=== PATIENT | female | born 1990 | race Two or more races ===

== ENCOUNTER 2018-06-24 11:00 | Observation (INO) | payer MEDICAID ==
[2018-06-24] MEDS ORDERED: LR 1,000 ML IV SCH (12:00)
[2018-06-24] MEDS ORDERED: ONDANSETRON 4 MG/2 ML VIAL IVP PRN (12:01)
--- NOTE | 2018-06-24 12:01 | PDGENHP ---
History and Physical History and Physical: Care: [facility] HPI: Patient is a 28yo with IUP @ 22-3 weeks that presents to L&D with complaints of cramping and back pain since yesterday evening. She was seen at [facility] last night and given indocin- with no relief. She states she is still having pain that starts in her back and radiates to the front. She is rating pain 5-6/10. She states warm baths help with pain. She denies any LOF, VB. She reports +FM. EDC: 10/25/18 which is based on LMP: 01/18/18 which is known and consistent with Ultrasound at 9 weeks. Her is complicated by: infertility ([id number]) Review of Systems: Constitutional: Denies any fever, chills, or fatigue HEENT: denies any visual changes, difficulty swallowing, hearing loss Cardiovascular: Denies any chest pain, palpitations, leg swelling Respiratory: denies any cough, wheezing, or shortness of breathe GI: Denies any nausea, vomiting, diarrhea, constipation, +cramps/back pain : denies any dysuria, urgency, frequency, vaginal bleeding Musculoskeletal: reports +back pain Skin: denies any rashes Neuro: denies any headache, seizures, lightheadedness, dizziness, or loss of consciousness Psychiatric: denies any depression, anxiety, or SI/HI thoughts HISTORY: Previous OB history: G1 Past medical history: infertility, BMI 34 Past surgical history: cholecystectomy, appendectomy, tonsillectomy Social: Denies any alcohol,drug use. reports tobacco use quit in first trimester Family history: Not relevant Medications: PNV Allergies: naproxen, percocet, wellbutrin LABS: Rh: A+ ABS: Neg Rubella: Immune HbsAg: NR HIV: NR VDRL: NR 1hr: n/a GC: Neg Chlamydia: Neg BMI: (prepreg)34 PHYSICAL EXAM: Constitutional: WN, A&Ox3 HEENT: normocephalic atraumatic, supple Skin: Warm, dry, intact Heart: RRR, no murmur Chest: CTA-B Abdomen: Soft, nontender, gravid SVE: ft/th/high x2 Extremities: no edema, negative homans sign Neuro: grossly normal Psych: normal affect assessment: FHT 145 Contractions: toco none- but difficult to roller picker due to maternal habitus, pt reports feeling pain/cramps q 4-6min Assessment: * [id number] with IUP@ 22-3wks * no evidence of labor * Likely GI virus * CL 4.1 cm * +FHT's * dehyration- resolved with IV fluids * UA negative, cx pending * +Bacterial vaginosis * anemia Plan: * may d/c home at this time * cont adequate PO hydration * Rx PO zofran/iron * monitor closely for S&S of PTL * cont tx for +BV * will tx if indicated - urine * keep next sched appt with FCM in approx 1 week this was reviewed with Luz Elena Lucero MD- aware/agrees with plan of care. Today's visit was approximately 60 min, of which >50% of visit 45 min, was spent face to face with pt on direct counseling/coordination of care.
[2018-06-24] MEDS ORDERED: CLINDAMYCIN 150 MG CAP PO SCH (13:15)
[2018-06-24] MEDS ORDERED: ACETAMINOPHEN 325 MG TAB PO PRN (13:28)
== END 2018-06-24 16:10 | disposition home or self-care (01) ==
LOC: FLD 11:00
PROVIDERS: ADMIT Advanced Practice Midwife; ATTEND Hospitalist
DX: O99.89 Other specified diseases and conditions complicating pregnancy, childbirth and the puerperium (principal); O23.593 Infection of other part of genital tract in pregnancy, third trimester; M54.9 Dorsalgia, unspecified; E86.0 Dehydration; Z3A.22 22 weeks gestation of pregnancy
CPT/HCPCS: 76830; G0378; J2405

== ENCOUNTER 2018-06-25 01:50 | Observation (INO) | payer MEDICAID ==
[2018-06-25] MEDS ORDERED: ONDANSETRON 4 MG/2 ML VIAL IVP PRN (02:25)
[2018-06-25] MEDS ORDERED: HYOSCYAMINE SULFATE 0.125 MG TAB PO ONE (02:30)
[2018-06-25] MEDS ORDERED: LIDOCAINE 2% VISCOUS 15 ML UDCUP PO ONE (02:30)
[2018-06-25] MEDS ORDERED: MAG HYDROX/AL HYDROX/SIMETH 30 ML UDCUP PO ONE (02:30)
[2018-06-25] MEDS ORDERED: LR 1,000 ML IV SCH (02:30)
--- NOTE | 2018-06-25 02:31 | PDGENHP ---
History and Physical History and Physical: Care: [facility] HPI: Patient is a 28yo with IUP @ 22-4 weeks that presents to L&D for 2nd time , was seen yesterday (see prior note) with complaints of cramping and back pain worse, pt tearful. She states she is still having pain that starts in her back and radiates to the front. She is rating pain 8/10. She denies any alleviating factors. She denies any LOF, VB. She reports +FM. EDC: 10/25/18 which is based on LMP: 01/18/18 which is known and consistent with Ultrasound at 9 weeks. Her is complicated by: infertility ([id number]) Review of Systems: Constitutional: Denies any fever, chills, or fatigue HEENT: denies any visual changes, difficulty swallowing, hearing loss Cardiovascular: Denies any chest pain, palpitations, leg swelling Respiratory: denies any cough, wheezing, or shortness of breathe GI: Denies any nausea, vomiting, diarrhea, constipation, +cramps/back pain : denies any dysuria, urgency, frequency, vaginal bleeding Musculoskeletal: reports +back pain Skin: denies any rashes Neuro: denies any headache, seizures, lightheadedness, dizziness, or loss of consciousness Psychiatric: denies any depression, anxiety, or SI/HI thoughts HISTORY: Previous OB history: G1 Past medical history: infertility, BMI 34 Past surgical history: cholecystectomy, appendectomy, tonsillectomy Social: Denies any alcohol,drug use. reports tobacco use quit in first trimester Family history: Not relevant Medications: PNV Allergies: naproxen, percocet, wellbutrin LABS: Rh: A+ ABS: Neg Rubella: Immune HbsAg: NR HIV: NR VDRL: NR 1hr: n/a GC: Neg Chlamydia: Neg BMI: (prepreg)34 PHYSICAL EXAM: Constitutional: WN, A&Ox3, tearful, appears in pain HEENT: normocephalic atraumatic, supple Skin: Warm, dry, intact Heart: RRR, no murmur Chest: CTA-B Abdomen: Soft, nontender, gravid SVE: ft/th/high Extremities: no edema, negative homans sign Neuro: grossly normal Psych: normal affect assessment: FHT 145 Contractions: toco none- but difficult to worm picker due to maternal habitus, pt reports feeling pain/cramps q 4-6min Assessment: * [id number] with IUP@ 22-3wks * no evidence of labor * Likely GI virus? * CL 4.1 cm * +FHT's * dehyration- resolved with IV fluids * UA negative, cx pending * +Bacterial vaginosis * anemia * back spasms Plan: * d/c home at this time * cont PO fluids * cont abx for +BV * flexeril rx given for back spasms * cont zofran PRN * PTL prec discussed * keep next sched appt in office this was reviewed with Coy Malhotra MD- aware/agrees with plan of care. Today's visit was approximately 90 min, of which >50% of visit 50 min, was spent face to face with pt on direct counseling/coordination of care.
[2018-06-25] MEDS: CYCLOBENZAPRINE 10 MG TAB PO SCH ×2 (03:42→03:43)
== END 2018-06-25 09:40 | disposition home or self-care (01) ==
LOC: FLD 01:50
PROVIDERS: ADMIT Advanced Practice Midwife; ATTEND Advanced Practice Midwife
DX: O99.282 Endocrine, nutritional and metabolic diseases complicating pregnancy, second trimester (principal); E86.0 Dehydration; O23.592 Infection of other part of genital tract in pregnancy, second trimester; Z3A.22 22 weeks gestation of pregnancy
CPT/HCPCS: G0378 ×2; 80305; J2405

== ENCOUNTER → 2018-08-01 | Outpatient (CLI) | payer MEDICAID | LOC: FIMAGING 12:07 | PROVIDERS: ATTEND Advanced Practice Midwife | DX: O26.892 Other specified pregnancy related conditions, second trimester (principal); Z3A.27 27 weeks gestation of pregnancy ==

== ENCOUNTER → 2018-08-25 | Outpatient (CLI) | payer MEDICAID | LOC: FIMAGING 14:14 | PROVIDERS: ATTEND Advanced Practice Midwife | DX: Z34.03 Encounter for supervision of normal first pregnancy, third trimester (principal); Z3A.31 31 weeks gestation of pregnancy ==

== ENCOUNTER 2018-10-09 16:30 | Observation (INO) | payer MEDICAID | END 2018-10-09 17:34 | disposition home or self-care (01) | LOC: FLD 16:30 | PROVIDERS: ADMIT Advanced Practice Midwife; ATTEND Advanced Practice Midwife | DX: O36.8190 Decreased fetal movements, unspecified trimester, not applicable or unspecified (principal); R50.9 Fever, unspecified; Z3A.00 Weeks of gestation of pregnancy not specified ==

== ENCOUNTER 2018-10-18 07:52 | Observation (INO) | payer MEDICAID ==
[2018-10-18] MEDS ORDERED: LR 1,000 ML IV SCH (09:00)
--- NOTE | 2018-10-18 10:53 | PDGENHP ---
History and Physical History and Physical: CARE: [facility] HPI: Patient is a 28 yo G 1 P 0 at 39 weeks ega who presents to L&D with complaints of contractions since yesterday afternoon, but became more regular and painful at 0400 this am. Denies LOF or VB. State increased vaginal mucous over the last week. Baby is active. Contractions are every 3-4 minutes lasting 30-45 seconds. EDC: 10/25/2018 which is based on LMP: 01/18/18 which is known and consistent with Ultrasound at 9 weeks. Her is complicated by: - h/o infertility X 10 years - BMI 34 - h/o PCOS - anemia Review of Systems: Constitutional: Denies any fever, chills, or fatigue HEENT: denies any visual changes, difficulty swallowing, hearing loss Cardiovascular: Denies any chest pain, palpitations, leg swelling Respiratory: denies any cough, wheezing, or shortness of breathe GI: Denies any nausea, vomiting, diarrhea, constipation : denies any dysuria, urgency, frequency, vaginal bleeding Musculoskeletal: denies any muscle or bone pain Skin: denies any rashes Neuro: denies any headache, seizures, lightheadedness, dizziness, or loss of consciousness Psychiatric: denies any depression, anxiety, or SI/HI thoughts HISTORY: Previous OB history: none Past medical history: PCOS, infertility X 10 years Past surgical history: gallbladder, appendectomy 2004, tonsillectomy 2003 Medications: PNV, iron Allergies (list reaction): naproxen, Percocet, Wellbutrin LABS: Rh: A pos ABS: Neg Rubella: Immune HbsAg: NR HIV: NR VDRL: NR 1hr: 100 GC: Neg Chlamydia: Neg Pap: Normal GBS: pos BMI: (prepreg) 34 PHYSICAL EXAM: Constitutional: WN, A&Ox3 HEENT: normocephalic atraumatic, supple Heart: RRR, no murmur Chest: CTA-B Abdomen: Soft, nontender, gravid SVE: 2/60/-3 Extremities: sml edema, negative rosas's sign Neuro: grossly normal Psych: normal affect assessment: Reassuring FHTs, baseline 140s +accels, no decels, moderate variability Contractions: toco q 3-4 Assessment: 1) 28 yo G 1 P 0 with IUP@ 39 weeks ega 2) labor check - no cervical knife changer 2 + hours 3) GBS pos 4) Cat 1 FHR tracing 5) UA normal Plan: 1) Early labor phase labor/vs irritable uterus-prelabor contractions 2) Will discharge home for therapeutic rest - patient has rx for Vistaril 100 mg po at home that she will take and try to rest until contractions stronger 3) Reviewed labor precautions and kick counts. Will call if contractions regular and more intense, SROM, or decreased activity. 4) Patient voices agreement and comfort with plan of care.
== END 2018-10-18 11:30 | disposition home or self-care (01) ==
LOC: FLD 07:52
PROVIDERS: ADMIT Advanced Practice Midwife; ATTEND Advanced Practice Midwife
DX: O62.9 Abnormality of forces of labor, unspecified (principal); O99.013 Anemia complicating pregnancy, third trimester; D64.9 Anemia, unspecified; Z3A.39 39 weeks gestation of pregnancy

== ENCOUNTER 2018-10-21 18:32 | Inpatient (IN) | payer MEDICAID ==
[2018-10-21] MEDS ORDERED: LR 1,000 ML IV PRN (18:55)
[2018-10-21] MEDS ORDERED: LIDOCAINE 1% 300 MG/30 ML SDV SC PRN (18:55)
[2018-10-21] MEDS ORDERED: IBUPROFEN 600 MG TAB PO PRN (18:55)
[2018-10-21] MEDS ORDERED: OLIVE OIL 118 ML BTL MISC PRN (18:55)
[2018-10-21] MEDS ORDERED: MISOPROSTOL 200 MCG TAB PR PRN (18:55)
[2018-10-21] MEDS ORDERED: OXYTOCIN/RINGERS LACTATE 1,000 ML IV PRN (18:55)
[2018-10-21] MEDS ORDERED: EPSOM SALT 454 GM TP PRN (18:55)
[2018-10-21] MEDS ORDERED: PENICILLIN G POTASSIUM 5,000,000 UNIT in D5W 150 ML IV ONE (19:00)
[2018-10-21 21:08] LABS: PLATELET COUNT 185 10^3/uL (150-400)
[2018-10-21] MEDS ORDERED: AMMONIA AROMATIC 1 EACH AMP IH ONE (21:42)
[2018-10-21] MEDS ORDERED: TERBUTALINE SULFATE 1 MG/ML VIAL ONE (21:42)
[2018-10-21] MEDS ORDERED: OXYTOCIN 10 UNIT/ML VIAL ONE (21:42)
[2018-10-21] MEDS ORDERED: MISOPROSTOL 200 MCG TAB ONE (21:42)
[2018-10-21] MEDS ORDERED: OLIVE OIL 118 ML BTL ONE (21:42)
[2018-10-21] MEDS ORDERED: LIDOCAINE 1% 300 MG/30 ML SDV ONE (21:42)
[2018-10-21] MEDS ORDERED: MISOPROSTOL 50 MCG CAP PO ONE (23:00)
[2018-10-21] MEDS: PENICILLIN G POTASSIUM 2,500,000 UNIT in D5W 150 ML IV SCH (23:32)
--- NOTE | 2018-10-22 00:38 | PDGENHP ---
History and Physical History and Physical: Care: [facility] HPI: Sil Yanes is a 28yo with IUP @ 39-3 weeks that presents to L&D with complaints of SROM @ 1715 on 10/21/18. She denies any contractions or VB. She reports +Fm. She states she had a gush of fluid @ 1715 that was clear and odorless. EDC: 10/25/2018 which is based on LMP is known and consistent with Ultrasound at 9 weeks. Her is complicated by: BMI 34, PCOS/infertility, anemia Review of Systems: Constitutional: Denies any fever, chills, or fatigue HEENT: denies any visual changes, difficulty swallowing, hearing loss Cardiovascular: Denies any chest pain, palpitations, leg swelling Respiratory: denies any cough, wheezing, or shortness of breathe GI: Denies any nausea, vomiting, diarrhea, constipation : denies any dysuria, urgency, frequency, vaginal bleeding Musculoskeletal: denies any muscle or bone pain Skin: denies any rashes Neuro: denies any headache, seizures, lightheadedness, dizziness, or loss of consciousness Psychiatric: denies any depression, anxiety, or SI/HI thoughts HISTORY: Previous OB history: G1 Past medical history: PCOS, anemia Past surgical history: cholecystectomy, appendectomy, dx lap for endometriosis, tonsillectomy Social: Denies any alcohol, tobacco, or drug use. . Has adopted son ( special needs) "Vallejo" Family history: Not relevant Medications: PNV, TUMS, iron Allergies (list reaction): wellbutrin, naproxen, percocet LABS: Rh: A+ ABS: Neg Rubella: Immune HbsAg: NR HIV: NR VDRL: NR 1hr: 100 GC: Neg Chlamydia: Neg Pap: Normal GBS: + BMI: (prepreg) 34 PHYSICAL EXAM: Constitutional: WN, A&Ox3 HEENT: normocephalic atraumatic, supple Skin: Warm, dry, intact Heart: RRR, no murmur Chest: CTA-B Abdomen: Soft, nontender, gravid SVE: deferred due to SROM Extremities: trace edema, negative homans sign Neuro: grossly normal Psych: normal affect assessment: FHT baseline 115-120 +accels, no decels, moderate variability Contractions: toco none on arrival Assessment: * [id number] with IUP@ 39-3wks * PROM * GBS+ * Cat 1 FHR tracing Plan: * Admit to L&D * IV abx * cytotec per IOL protocol (50mcg q 4) * pain management PRN * IA until Augmentation starts Today's visit was approximately 30 min, of which >50% of visit 20 min, was spent face to face with pt on direct counseling/coordination of care.
[2018-10-22] MEDS: PENICILLIN G POTASSIUM 2,500,000 UNIT in D5W 150 ML IV SCH ×5 (03:18→20:35)
--- NOTE | 2018-10-22 04:54 | OBPROG ---
Labor Progress Note Assessment/Plan: Assessment: [id number] with IUP@ 40-4wks PROM 10/21/18 @ 1715 GBS+ Cat 1 FHR Plan: reassess @ 0600 repeat cytotec if able consider pitocin augmentation 10/22/18 04:47 Subjective/Intrapartum Course: 10/22/18 04:54 Pt breathing through contractions. She states she is having rectal pressure and feeling nauseous. FOB and septic tank servicer @ BS Objective: 10/21/18 20:44 Patient ABO/Rh A POSITIVE 10/21/18 20:44 - SVE Dilation (cm): 3 Effacement (%): 50 Station: -2 Membranes: SROM Amniotic Fluid Color: Clear - Contraction Pattern Assessment Current Contraction Pattern: Irregular - FHR Assessment Sanchez FHR (bpm): 125 FHR Pattern Variability: Minimal FHR Category: 1 Oxytocin Orders Assessment - Pre-Induction/Augmentation Assessment Gestational Age: 39 week(s) and 3 day(s) ICD10 Worksheet Patient Problems: Problems Problem Status Onset BMI 34.0-34.9,adult Acute GBS (group B Streptococcus carrier), +RV culture, currently Acute Supervision of normal first in third trimester Acute - ICD10 Problem Qualifiers (1) GBS (group B Streptococcus carrier), +RV culture, currently (2) Supervision of normal first in third trimester (3) BMI 34.0-34.9,adult
--- NOTE | 2018-10-22 10:52 | OBPROG ---
Labor Progress Note Assessment/Plan: Assessment: 28 y/o G1 SROM @1715 10/21/18 FHTs reassuring via intermittent monitoring Contractions mild/mod q3-5 min SVE /- Plan: Recommended Pitocin augmentation at this time due to extended time since SROM - 18 hours at this time, and minimal cervical change. Patient agreeable to plan, is considering epidural for pain control. Anticipated 10/22/18 17:29 Subjective/Intrapartum Course: 10/22/18 11:00 Pt breathing through contractions. She states she is having rectal pressure and feeling nauseous. FOB and criminal defense attorney @ BS 10/22/18 17:36 Objective: 10/21/18 20:44 Patient ABO/Rh A POSITIVE 10/21/18 20:44 - SVE Dilation (cm): 3 Effacement (%): 50 Station: -2 Membranes: SROM Amniotic Fluid Color: Clear - Contraction Pattern Assessment Current Contraction Pattern: Irregular - Physical Exam General Appearance: WD/WN, alert Neck: non-tender Respiratory: normal breath sounds Cardiac/Chest: regular rate, rhythm Extremities: normal range of motion Skin: normal color, warm/dry Neuro/Psych: no motor/sensory deficits, alert, normal mood/affect, oriented x 3 Oxytocin Orders Assessment - Pre-Induction/Augmentation Assessment Presentation: Vertex Gestational Age: 39 week(s) and 3 day(s) Estimated Weight: 4216-7408 Membrane Status: Ruptured Current Sterile Vaginal Exam (SVE): /- Current Contraction Pattern: Irregular - Lubin's Score Dilation: 3-4cm Effacement: 60-70 Station: -3 Cervix: Soft Cervix Position: Posterior Lubin Score Total: 6 - Induction/Augmentation Consent Risks/Benefits of Procedure Reviewed/Pt Agrees to Proceed: Yes ICD10 Worksheet Patient Problems: Problems Problem Status Onset BMI 34.0-34.9,adult Acute GBS (group B Streptococcus carrier), +RV culture, currently Acute Prolonged rupture of membranes Acute Supervision of normal first in third trimester Acute - ICD10 Problem Qualifiers (1) Prolonged rupture of membranes
[2018-10-22] MEDS ORDERED: LR 500 ML IV PRN (10:54)
[2018-10-22] MEDS ORDERED: OXYTOCIN/RINGERS LACTATE 500 ML IV SCH (11:00)
[2018-10-22] MEDS ORDERED: BUPIVACAINE 0.25% 10 ML SDV ONE (11:36)
[2018-10-22] MEDS ORDERED: PHENYLEPHRINE HCL 100 MCG/ML SYR ONE (11:36)
[2018-10-22] MEDS ORDERED: fentaNYL 2MCG/ML/BUP 0.1% RTU 100 ML BAG EP ONE (11:36)
[2018-10-22] MEDS ORDERED: fentaNYL 100 MCG/2 ML INJ ONE (11:37)
--- NOTE | 2018-10-22 12:13 | PDANEPAE ---
ANE History of Present Illness Term in labor 3 cm and requesting epidural ANE Past Medical History - Cardiovascular History Hx Hypertension: No - Pulmonary History Hx Asthma/Reactive Airway Disease: No Hx Sleep Apnea: No ANE Review of Systems Review of Systems: ANE Patient History - Allergies Allergies/Adverse Reactions: bupropion [From Wellbutrin] Allergy (Verified 06/25/18 06:45) Rash naproxen Allergy (Verified 06/24/18 11:31) Hives oxycodone [From Percocet] Allergy (Verified 06/25/18 06:45) Vomiting - Home Medications Home medications: home medication list seen and reviewed Home Medications: Clindamycin HCl [Clindamycin] 300 mg PO TID 06/24/18 [Last Taken 06/24/18 12:30] Vit27&Calcium/Iron/FA [] 1 each PO DAILY 06/24/18 [Last Taken 1 Day Ago ~06/23/18] - Anes Hx Anes Hx: no prior problems (No prior RA) - Smoking Hx Smoking Status: Former smoker ANE Labs/Vital Signs - Labs Result Diagrams: 10/21/18 20:44 - Vital Signs Height: 162.56 cm Weight: 105.233 kg ANE Physical Exam - Airway Neck exam: FROM Mallampati Score: Class 2 Mouth exam: normal dental/mouth exam - Pulmonary Pulmonary: no respiratory distress - Cardiovascular Cardiovascular: regular rate and rhythym - ASA Status ASA Status: II ANE Anesthesia Plan Anesthesia Plan: epidural (PCEA)
[2018-10-22] MEDS ORDERED: fentaNYL 2MCG/ML/BUP 0.1% RTU 100 ML EP SCH ×2 (12:30→20:30)
[2018-10-22] MEDS ORDERED: LR 500 ML IV SCH (12:30)
--- NOTE | 2018-10-22 17:29 | OBPROG ---
Labor Progress Note Assessment/Plan: Assessment: 28 y/o G1 SROM at 1715 10/21/18 Pitocin infusing at 20 mu Comfortable with epidural Category 1 EFM VSS - afebrile SVE /-2 Nurse having difficulty monitoring contractions with external EFM Plan: Will place IUPC Continue pitocin Anticipate 10/22/18 17:38 Subjective/Intrapartum Course: 10/22/18 04:54 Pt breathing through contractions. She states she is having rectal pressure and feeling nauseous. FOB and trademark paralegal @ BS 10/22/18 17:40 Comfortable with epidural Objective: 10/21/18 20:44 Patient ABO/Rh A POSITIVE 10/21/18 20:44 - SVE Dilation (cm): 5 Effacement (%): 75 Station: -2 Membranes: SROM Amniotic Fluid Color: Clear - Contraction Pattern Assessment Current Contraction Pattern: Regular - Procedures Non-surgical Procedures: IUPC Oxytocin Orders Assessment - Pre-Induction/Augmentation Assessment Gestational Age: 39 week(s) and 3 day(s) ICD10 Worksheet Patient Problems: Problems Problem Status Onset BMI 34.0-34.9,adult Acute GBS (group B Streptococcus carrier), +RV culture, currently Acute Prolonged rupture of membranes Acute Supervision of normal first in third trimester Acute
[2018-10-22] MEDS ORDERED: METHYLERGONOVINE MAL 0.2 MG/ML INJ ONE (20:52)
--- NOTE | 2018-10-22 22:20 | OBPROG ---
Labor Progress Note Assessment/Plan: Assessment: 28 y/o G1 SROM at 1715 10/21/18 Pitocin infusing at 30 mu Category 1 EFM VSS - afebrile SVE 8-9/80/-2 - uncomfortable with a lot of rectal pressure MVUs avg 150 Plan: Will request epidural bolus Continued position changes - suspect OP/asynclitic presentation Continue pitocin Reevaluate in 1-2 hours 10/22/18 17:38 10/22/18 22:17 Subjective/Intrapartum Course: 10/22/18 04:54 Pt breathing through contractions. She states she is having rectal pressure and feeling nauseous. FOB and credit risk modeler @ BS 10/22/18 17:40 Comfortable with epidural 10/22/18 22:20 Uncomfortable - feeling a lot of rectal pressure Objective: 10/21/18 20:44 Patient ABO/Rh A POSITIVE 10/21/18 20:44 - SVE Dilation (cm): 9 Effacement (%): 80 Station: -2 Membranes: SROM Amniotic Fluid Color: Clear - Contraction Pattern Assessment Current Contraction Pattern: Regular - Procedures Non-surgical Procedures: IUPC - Physical Exam Estimated Weight: 5818-0212 Oxytocin Orders Assessment - Pre-Induction/Augmentation Assessment Presentation: Vertex Gestational Age: 39 week(s) and 3 day(s) Estimated Weight: 9466-4931 ICD10 Worksheet Patient Problems: Problems Problem Status Onset BMI 34.0-34.9,adult Acute GBS (group B Streptococcus carrier), +RV culture, currently Acute Prolonged rupture of membranes Acute Supervision of normal first in third trimester Acute
--- NOTE | 2018-10-23 00:28 | OBDEL ---
Info Type: Vaginal Presentation at Delivery: Vertex L&D Analgesia/Anesthesia Type: Epidural GBS+: Yes Antibiotic Used for + GBS: Ampicillin Intrapartum Medications: Generic Name Dose Route Start Last Admin Trade Name Freq PRN Reason Stop Dose Admin Penicillin G Potassium 2,500, 155 mls @ 155 mls/hr 10/21/18 23:00 10/22/18 20 :35 000 unit/ Dextrose IV 11/20/18 22:59 155 mls Q4H BERTIN Administration Protocol Oxytocin/Lactated Ringer's 500 mls @ 0 mls/hr 10/22/18 11:00 10/22/18 11:54 Pitocin 30 Units/Lr (Premix) IV 04/20/19 10:59 500 mls CONT BERTIN Administration Protocol Per Protocol Discontinued Medications Generic Name Dose Route Start Last Admin Trade Name Freq PRN Reason Stop Dose Admin Lactated Ringer's 1,000 mls @ 0 mls/hr 10/21/18 18:55 10/22/18 06:26 Lr IV 10/22/18 18:54 1,000 mls PRN PRN Administration SEE PROTOCOL CONDITIONS Protocol Per Protocol Penicillin G Potassium 5,000, 160 mls @ 160 mls/hr 10/21/18 19:00 10/21/18 20 :36 000 unit/ Dextrose IV 10/21/18 19:59 160 mls ONCE ONE Administration Protocol Misoprostol 50 mcg 10/21/18 23:00 10/22/18 01:30 Cytotec PO 10/21/18 23:01 50 mcg ONCE ONE Administration - Hospital Course Intrapartum: 10/22/18 04:54 Pt breathing through contractions. She states she is having rectal pressure and feeling nauseous. FOB and director of neurology @ BS 10/22/18 17:40 Comfortable with epidural 10/22/18 22:20 Uncomfortable - feeling a lot of rectal pressure Indications for Delivery: SROM Vaginal Delivery - Delivery Provider Delivery Physician/CNM: Ann Dominguez - Labor and Delivery Onset of Contractions Date: 10/22/18 Onset of Contractions Time: 11:00 Onset of Contractions Type: Induced Rupture of Membranes Date: 10/21/18 Rupture of Membranes Time: 17:15 Rupture of Membranes Type: Spontaneous Amniotic Fluid Color: Clear Dilation Complete Date: 10/22/18 Dilation Complete Time: 23:37 Placenta Delivery Date: 10/22/18 Placenta Delivery Time: 23:57 Total Hours of Labor: 12 Non-surgical Procedures: IUPC Laceration: 2nd Degree (vaginal) Repair: 3-0, Vicryl Vaginal Sponge Count Correct: Yes Vaginal Needle Count Correct: Yes Vaginal Sweep Performed: Yes EBL: 200 Delivery Events: None Data CELESTE: 10/25/18 Gestational Age: 39 week(s) and 5 day(s) Sanchez Delivery Date: 10/22/18 Delivery Time: 23:57 Sex of Infant: Female Score (1 Min): 8 Score (5 Min): 10 ICD10 Worksheet Patient Problems: Problems Problem Status Onset BMI 34.0-34.9,adult Acute GBS (group B Streptococcus carrier), +RV culture, currently Acute Prolonged rupture of membranes Acute Supervision of normal first in third trimester Acute Vaginal delivery Acute - ICD10 Problem Qualifiers (1) Vaginal delivery
[2018-10-23] MEDS ORDERED: HYDROCORTISONE 0.5% CREAM TP PRN (00:31)
[2018-10-23] MEDS ORDERED: SIMETHICONE 80 MG TAB CHEW PO PRN (00:31)
[2018-10-23] MEDS: ACETAMINOPHEN 500 MG TAB PO PRN ×4 (01:09→20:23)
[2018-10-23] MEDS ORDERED: CALCIUM CARBONATE 500 MG CHEWABLE TAB PO ONE (03:15)
[2018-10-23] MEDS: PENICILLIN G POTASSIUM 2,500,000 UNIT in D5W 150 ML IV SCH ×2 (03:48→05:38)
[2018-10-23] MEDS: FERROUS SULFATE 325 MG TAB PO SCH (08:03)
[2018-10-23] MEDS: DOCUSATE SODIUM 100 MG CAP PO PRN ×2 (08:03→20:23)
--- NOTE | 2018-10-23 11:57 | OBPP ---
Progress Note Assessment/Plan: Assessment: 28 y/o s/p - ppd#1 Plan: routine pp care Anticipate d/c tomorrow 10/22/18 17:38 10/22/18 22:17 10/23/18 11:55 Subjective/ Course: 10/23/18 11:54 Doing well this morning - was able to get some sleep and going well. Pain controlled with tylenol, tolerating regular diet and activity. Bleeding wnl, voiding without difficulty. Objective: 10/21/18 20:44 Patient ABO/Rh A POSITIVE 10/21/18 20:44 Temp Pulse Resp BP Pulse Ox 36.4 C 84 16 118/82 H 95 10/23/18 08:11 10/23/18 08:11 10/23/18 08:11 10/23/18 08:11 10/23/18 08:11 Uterine Position/Fundal Height: At Umbilicus Uterine Tone: Firm Physical Exam - Physical Exam EENT: PERRL/EOMI Neck: full range of motion Respiratory: normal breath sounds Cardiac/Chest: regular rate, rhythm Extremities: normal range of motion Skin: normal color, warm/dry Neuro/Psych: alert, normal mood/affect, oriented x 3
[2018-10-24] MEDS: ACETAMINOPHEN 500 MG TAB PO PRN ×3 (09:30→21:23)
[2018-10-24] MEDS: FERROUS SULFATE 325 MG TAB PO SCH (09:30)
--- NOTE | 2018-10-24 10:02 | OBGCSDC ---
General Delivery Information - General Info : 1 Para: 1 Abortions: 0 Type: Vaginal L&D Analgesia/Anesthesia Type: Epidural Admission Date: 10/21/18 Labs: Patient ABO/Rh A POSITIVE 10/21/18 20:44 Hct 33.2 % (38.0-47.0) L 10/21/18 20:44 - Hospital Course Intrapartum: 10/22/18 04:54 Pt breathing through contractions. She states she is having rectal pressure and feeling nauseous. FOB and cytogenetics technologist @ BS 10/22/18 17:40 Comfortable with epidural 10/22/18 22:20 Uncomfortable - feeling a lot of rectal pressure : 10/23/18 11:54 Doing well this morning - was able to get some sleep and going well. Pain controlled with tylenol, tolerating regular diet and activity. Bleeding wnl, voiding without difficulty. 10/24/18 10:01 doing well, painful . pain well controlled with Tylenol. Tolerating PO. Bleeding is light. Vaginal - Delivery Provider Delivery Physician/CNM: Ann Dominguez - Diagnosis Labor: Induced Rupture of Membranes Type: Spontaneous Amniotic Fluid Color: Clear Laceration: 2nd Degree (vaginal) Repair: 3-0, Vicryl Delivery Events: None - Procedures Non-surgical Procedures: IUPC - Delivery Non-surgical Procedures: IUPC EBL: 200 Data CELESTE: 10/25/18 Gestational Age: 39 week(s) and 6 day(s) Sanchez Delivery Date: 10/22/18 Delivery Time: 23:57 Sex of : Female [place] Weight (gm): 3090 kg Score (1 Min): 8 Score (5 Min): 10 Discharge Information - Discharge Information Condition: Good Instruction/Follow Up: Two Weeks, Four Weeks, Six Weeks
[2018-10-24 20:15] VITALS: BP 122/74
[2018-10-24] MEDS: DOCUSATE SODIUM 100 MG CAP PO PRN (21:23)
== END 2018-10-24 22:21 | disposition home or self-care (01) | DRG 560 ==
LOC: FLD 18:32 → OBSVTOIN 18:57 → FOB 10-23 02:34
PROVIDERS: ADMIT Advanced Practice Midwife; ATTEND Advanced Practice Midwife
DX: O42.12 Full-term premature rupture of membranes, onset of labor more than 24 hours following rupture (principal); O70.1 Second degree perineal laceration during delivery; O99.824 Streptococcus B carrier state complicating childbirth; Z37.0 Single live birth; Z3A.39 39 weeks gestation of pregnancy
CPT/HCPCS: J2210; J2370; J2540; J2590; J3010; J3105